=== PATIENT | female | born 1975 | race Caucasian/White ===

== ENCOUNTER → 2016-12-02 | Day surgery (SDC) | payer OTHER ==
[~2016-12-02] MED LIST: LIDO/EPI 1% **for epidural** 30 ML SDV ONE; SODIUM TETRADECYL SULFATE 60 MG/2 ML VIAL IV ONE
--- NOTE | 2016-12-02 18:04 | IR ---
Please see report for contralateral leg performed on the same day.
--- NOTE | 2016-12-02 18:14 | IR ---
Bilateral Sclerotherapy Indication: Areas of residual flow in the great saphenous system. Areas of residual tenseness to th e right lower extremity, and possible new veins to the right lower extremity. The thought was that b ecause of lack of resorption in the great saphenous system, there is still inflow. The patient also states that the areas of lumps in the thighs and calf have not resolved over time. Ultrasound: Ultrasound interrogation of the areas of lumps again confirm that they all represent are as of trapped blood. For whatever reason, this patient has not resorbed any of her clots. Informed Consent: Obtained from the patient. Risks and benefits were discussed. Cross Cutting Measure: Patient's current list of medications including all known prescriptions, over -the-counters, herbals, and vitamin/mineral/dietary supplements are reviewed. Medications' name, dos age, frequency, and route of administration are confirmed. Patient is a non-smoker. Prophylactic Antibiotic: Cefazolin was not ordered and administered for antimicrobial prophylaxis be cause it was not medically necessary. VTE Prophylaxis: There is not an order for VTE prophylaxis to be given within 24 hours of the proced ure end time. VTE prophylaxis was not given because it was not medically necessary. Technique: Patient is placed in supine position. A "timeout" procedure was performed to identify th e correct patient and the correct procedure. 1% Xylocaine was used for local anesthetic. All elemen ts of maximal sterile barrier technique, including cap, mask, sterile gown, sterile gloves, large darion rile sheet, hand hygiene, and 2% chlorhexidine for cutaneous antisepsis, followed. Ultrasound evaluation of potential access site was performed. After successfully identifying a paten t vessel, ultrasound guidance was used to puncture the vessel. A permanent recording was created for the patient's record. When ultrasound is used, sterile gel and probe covers are used. We tried to advance a Lenorah wire after micropuncture access into the great saphenous system at the kne e on the right leg. The Lenorah wire was not able to be advanced because the clot is now already very h ardened. Subsequently, with segmental injections, sclerotherapy was delivered into the already clotted great s aphenous system to close off any potential channel that may still be open. This is done on both legs. Additional sclerotherapy was performed into some of the larger areas of lumps to help with resorption , if there is indeed still a channel open. The patient tolerated the procedure well. Compression stocking was applied afterwards. Impression: Repeat sclerotherapy, multivessel, was performed, free of charge to this patient, to bot h lower extremities. This is done to close off any potential areas of patency that has been left sin ce the previous treatments. Plan: Follow up in one month.
== END | disposition home or self-care (01) ==
LOC: FIMAGING 08:52
PROVIDERS: ATTEND Radiology Diagnostic Radiology
PROC: 06LP3ZZ Occlusion of Right Saphenous Vein, Percutaneous Approach (ICD-10-PCS; principal; 2016-12-02)
PROC: 06LQ3ZZ Occlusion of Left Saphenous Vein, Percutaneous Approach (ICD-10-PCS; principal; 2016-12-02)
DX: I83.893 Varicose veins of bilateral lower extremities with other complications (principal)

== ENCOUNTER → 2017-03-23 | Outpatient (CLI) | payer OTHER | LOC: BMCIMAGING 07:53 | PROVIDERS: ATTEND Family Medicine | DX: Z12.31 Encounter for screening mammogram for malignant neoplasm of breast (principal) | CPT/HCPCS: G0202 ==

== ENCOUNTER 2017-04-04 20:39 | Emergency (ER) | payer OTHER ==
[2017-04-04 20:48] VITALS: BP 124/66; PULSE 68; RESP 16; TEMP 98.1; O2SAT 97
== END 2017-04-04 21:26 | disposition left against medical advice (07) ==
DX: Z53.21 Procedure and treatment not carried out due to patient leaving prior to being seen by health care provider (principal)

== ENCOUNTER → 2017-11-07 | Outpatient (CLI) | payer OTHER | LOC: FIMAGING 08:56 | PROVIDERS: ATTEND Obstetrics & Gynecology | DX: O09.521 Supervision of elderly multigravida, first trimester (principal); O26.01 Excessive weight gain in pregnancy, first trimester; Z3A.13 13 weeks gestation of pregnancy ==

== ENCOUNTER → 2018-01-02 | Outpatient (CLI) | payer OTHER | LOC: FIMAGING 07:57 | PROVIDERS: ATTEND Obstetrics & Gynecology | DX: O09.529 Supervision of elderly multigravida, unspecified trimester (principal); Z3A.00 Weeks of gestation of pregnancy not specified ==

== ENCOUNTER → 2018-03-20 | Outpatient (CLI) | payer OTHER | LOC: FIMAGING 12:55 | PROVIDERS: ATTEND Obstetrics & Gynecology | DX: O09.523 Supervision of elderly multigravida, third trimester (principal); O36.63X0 Maternal care for excessive fetal growth, third trimester, not applicable or unspecified; Z3A.31 31 weeks gestation of pregnancy; Z98.891 History of uterine scar from previous surgery ==

== ENCOUNTER 2018-05-09 05:55 | Inpatient (IN) | payer OTHER ==
--- NOTE | 2018-05-08 15:40 | GHP ---
[f rep st] PREOP HISTORY AND PHYSICAL DATE OF ADMISSION: 05/09/2018 PLANNED PROCEDURE: Repeat low transverse section. INDICATIONS: Patient is a 42-year-old 8, para 2-0-5-2 with an estimated date of confinement of 05/16/2018, dated by an 8 week ultrasound. Her due date based on ultrasound was greater than 5 days in the first trimester , so her due date was changed. She initiated care at [facility] at 9 weeks 4 days. She has a history of a successful vaginal delivery, followed by a primary low transverse section for chorioamnionitis and bradycardia at 7 cm. The patient was hoping to have a vaginal after section; however, has reached 39 weeks' gestation and is electing to proceed with a repeat low transverse section. She declines tubal ligation. She did ask to be examined about possible induction of labor and she was 1 cm dilated, 70% effaced, and -2 station, so she had declined to continue and attempt to have a vaginal after section, especially because her most recent amniotic fluid has been 8 cm, borderline now, and she is requesting to be done with . PAST MEDICAL HISTORY: Significant for a history of a dermoid cyst, borderline melanoma. MEDICATIONS: vitamins, fish oil, DHA. PAST SURGICAL HISTORY: Primary low transverse section, laparoscopic removal of a dermoid cyst, tonsillectomy and adenoidectomy. ALLERGIES: No known drug allergies. SOCIAL HISTORY: The patient is . She works is a wellness coach. She denies tobacco, alcohol, or drug use. FAMILY MEDICAL HISTORY: Significant for multiple family members with cancer, including breast and ovarian cancer and colon cancer. Patient had negative BRCA testing and My Risk testing, but at increase risk for breast cancer. OBSTETRIC/GYNECOLOGIC HISTORY: Menarche age 17. Periods every 28-32 days, lasting 7 days. She is a 8, para 2-0-5-2. In 2006 she had a spontaneous vaginal delivery of a 7 pound 9 ounce female . She pushed for 3 contractions with that baby. In 12/2008, she had a primary low transverse section of a 7 pounds 7 ounce male infant for chorioamnionitis and bradycardia. She has had approximately 5 chemical pregnancies subsequent to the most recent . This current has been uncomplicated with the exception of some borderline low fluid for which she is scheduling her repeat section. Patient does have a history of abnormal Pap smear x1, but a colposcopy was negative. She denies any history of any sexually transmitted diseases. REVIEW OF SYSTEMS: 10-point review of systems is negative. She has positive movement. No loss of fluid. She denies any headache, changes in vision, nausea, vomiting, fevers, or chills. PHYSICAL EXAMINATION: VITAL SIGNS: Stable. GENERAL APPEARANCE: Alert and oriented x3. NECK: Mobile and supple. MUSCULOSKELETAL: Grossly intact. PSYCH: Appropriate affect. NEUROMUSCULAR: Grossly intact. HEART: Rate is regular, regular. LUNGS: Clear to auscultation bilaterally. ABDOMEN: Gravid , nondistended, nontender. EXTREMITIES: Reveal no calf, tenderness, or edema. PELVIC: 1 cm dilated, 70% effaced, and -2 station. heart tracing is category 1. She has a reactive nonstress test. LABORATORY DATA: Blood type A positive. Antibody screen negative. Rubella immune. GBS negative. HBsAg negative. Her 50 g glucose was 177. ASSESSMENT/PLAN: 42-year-old 8, para 2-0-5-2 who will be 39 weeks' gestation for a repeat low transverse section. Risks and benefits have been reviewed with the patient. Patient has been properly consented. /[id number]/MODL MTDD
[2018-05-09] MEDS ORDERED: LR 1,000 ML IV SCH (06:07)
[2018-05-09] MEDS ORDERED: ceFAZolin 2 GM/DEXTROSE 100 ML IV ONE (06:07)
[2018-05-09] MEDS ORDERED: CITRIC ACID/SODIUM CITRATE 30 ML UDCUP PO ONE (06:07)
[2018-05-09] MEDS ORDERED: LR 500 ML IV ONE (06:07)
[2018-05-09 06:21] LABS: PLATELET COUNT 162 10^3/uL (150-400)
--- NOTE | 2018-05-09 07:22 | PREANESOB ---
Obstetric Pre-Anesthesia Info - General Info Proposed Procedure: Repeat C Section. : 8 Para: 2 CT: 05/16/18 Gestational Age: 39 week(s) and 0 day(s) - Info Status: Full Term Monitors: External FHR Baseline (bpm): 130 FHR Pattern: Reassuring - Labor Status Indications for Current Section: Elective/Repeat Labor Epidural: No Anesthesia ROS: Prior epidural x 2, and general anesthesia. Allergies/Adverse Reactions: Allergy/AdvReac Type Severity Reaction Status Date / Time No Known Allergies Allergy Verified 04/04/17 20:48 Home Medications: Medication Instructions Recorded Fish Oil PO DAILY 09/03/16 Flaxseed Oil [Flaxseed] PO DAILY 09/03/16 Multi-Vitamin Daily 1 tab PO DAILY 09/03/16 VITAMIN D PO DAILY 09/03/16 Visit Medications: Generic Name Dose Route Start Last Admin Trade Name Freq PRN Reason Stop Dose Admin Lactated Ringer's 1,000 mls @ 125 mls/hr 05/09/18 06:07 05/09/18 06:35 Lr IV 05/10/18 06:06 1,000 mls CONT BARBI Administration Discontinued Medications Generic Name Dose Route Start Last Admin Trade Name Freq PRN Reason Stop Dose Admin Citric Acid/Sodium Citrate 30 ml 05/09/18 06:07 Bicitra PO 05/09/18 06:08 ONCALL ONE Cefazolin Sodium/Dextrose 100 mls @ 200 mls/hr 05/09/18 06:07 Ancef 2 Gm IV 05/09/18 06:36 ONCALL ONE Protocol Lactated Ringer's 500 mls @ 0 mls/hr 05/09/18 06:07 Lr IV 05/09/18 06:08 ONCE ONE As Directed - Anesthesia History Response to Local Anesthetics: Normal Anesthesia & Operative History: No Prior Problems Family Anesthesia History: Negative - Social History Substance Use/Abuse: Denies - Vital Signs Latest Vital Signs (Nursing): Temp Pulse Resp BP Pulse Ox 36.6 C 76 18 107/58 L 96 05/09/18 06:34 05/09/18 06:34 05/09/18 06:34 05/09/18 06:34 05/09/18 06:34 Blood Pressure: 107/58 Heart Rate: 76 Height/Weight (Nursing): Height 167.64 cm Weight 84.368 kg - Focused Exam Mallampati Score: Class 1 Mouth exam: normal dental/mouth exam Pulmonary: no respiratory distress Cardiovascular: regular rate and rhythym Labs: 05/09/18 06:00 Patient ABO/Rh A POSITIVE 05/09/18 06:00 - Plan Anesthetic Plan: SAB Consent Signed and on Chart: Yes Patient/Guardian Understands and Agrees to Plan: Yes
[2018-05-09] MEDS ORDERED: morphINE PF 5 MG/10 ML INJ ONE (07:43)
[2018-05-09] MEDS ORDERED: fentaNYL 100 MCG/2 ML INJ ONE (07:44)
--- NOTE | 2018-05-09 08:01 | PDHPUP ---
History & Physical Update H&P update statement: This history and physical update is based on an assessment of the patient which was completed after admission or registration (within 24 hours), but prior to the surgery/procedure. No changes since H&P done yesterday by Dr. Pradhan. H&P update: H&P reviewed & patient examined, no change in patient's condition since H&P completed
[2018-05-09] MEDS ORDERED: OXYTOCIN 100 UNITS/10 ML VIAL ONE (08:41)
[2018-05-09] MEDS ORDERED: PHENYLEPHRINE HCL 100 MCG/ML SYR ONE (08:42)
[2018-05-09] MEDS ORDERED: DEXAMETHASONE 4 MG/ML VIAL ONE (08:42)
[2018-05-09] MEDS ORDERED: ONDANSETRON 4 MG/2 ML VIAL ONE (08:42)
[2018-05-09] MEDS ORDERED: EPINEPHrine 1 MG/ML INJ ONE (08:42)
--- NOTE | 2018-05-09 09:27 | POSTOPPROG ---
Post Op Note Date of Operation: 05/09/18 Surgeon: Jia Chaudhary Resident Manager: BILL Cleary and Valentine Cesar CNM Anesthesiologist: Jason Farris MD Anesthesia: Spinal Pre-op Diagnosis: Elective repeat section Post-op Diagnosis: Same Indication: prior , desires repeat Procedure: repeat low transverse section Findings: normal appearing uterus, tube and ovaries, delivery of a male Inf/Abcess present in the surg proc area at time of surgery?: No EBL: 500-1000 Total fluids administered: 3000 Complications: none Specimen(s): none
--- NOTE | 2018-05-09 09:31 | SUROPNOTE ---
[facility] Operative Report - Surgery OPERATIVE NOTE 05/09/2018 PRE-OPERATIVE DIAGNOSIS: Elective repeat section POST-OPERATIVE DIAGNOSIS: Same SURGEON: Jia Chaudhary MD FILLING SEPARATOR: BILL Man, and Valentine Cesar CNM, needed for adequate exposure and retraction ANESTHESIOLOGIST: Jason Farris MD ANESTHESIA: Spinal NURSE PRACTITIONER: JUAN FRANCISCO Bailey EBL: 800 ml IV FLUIDS: 3000 ml URINE OUTPUT: 100 ml FINDINGS: Normal appearing uterus, tubes and ovaries, delivery of male from vertex presentation, Apgars 8 and 9, weight 3792gm INDICATIONS: 42 year old at 39 weeks with a prior vaginal delivery and a prior section, elected to have a repeat section. was complicated by AMA with normal NIPT and MFM ultrasounds. PROCEDURE: Written informed consent was obtained after all questions were answered. She was taken to the operating room where spinal anesthetic was placed. She was then placed in the dorsal supine position. 2 gm of Ancef IV were given. A urinary catheter was placed steriley. Her abdomen was prepared and draped in a sterile fashion. Pinch testing was performed and spinal anesthetic was deemed adequate. An incision was made in the skin and taken down to the fascia which was incised in the midline. This incision was extended laterally. The rectus muscles were dissected away from the overlying fascia in a sharp and blunt fashion. The rectus muscles were in the midline and the peritoneum was entered bluntly. A bladder blade was inserted. A small bladder flap was created, but was limited due to adhesions. The bladder blade was replaced over the incision. The hysterotomy was made and extended laterally with the bandage scissors. Membranes were ruptured with release of clear fluid. The vertex was grasped and elevated out of the pelvis then through the incision with the assistance of fundal pressure. Nose and mouth were bulb suctioned. The body was then delivered with the assistance of fundal pressure. 1 minute of delay was performed prior to clamping and cutting the cord. During this time, the baby was dried and stimulated. The baby was then handed to the awaiting HARMONICA MAKER. The uterus was massaged and the placenta was delivered. The uterus was cleared of all clots and debris x 2. The hysterotomy was repair with 0.0 Monocryl in a running locked fashion. A second imbricating layer was placed, and a few figure of eight sutures were used to obtain hemostasis. The uterus was replaced into the abdomen. The gutters were irrigated and cleared of clots and debris. The fascia was then closed with 2 segments of 0.0 PDS, with knots tied in the middle. The wound was irrigated. Araceli's fascia was closed with 3.0 Monocryl. The skin was closed with 4.0 Monocryl in a running subcuticular fashion. Mastisol was applied, followed by steri strips, and a dressing. Sponge, lap and needle counts were correct times 2. The patient was taken to the recovery room in stable condition. Jia Chaudhary MD
[2018-05-09] MEDS ORDERED: SCOPOLAMINE HYDROBROMIDE 1 MG/3 DAYS PATCH TD ONE ×2 (09:39→10:11)
[2018-05-09] MEDS ORDERED: PHENYLEPHRINE HCL 100 MCG/ML SYR IVP PRN (10:08)
[2018-05-09] MEDS ORDERED: ONDANSETRON 4 MG/2 ML VIAL IVP PRN (10:08)
[2018-05-09] MEDS ORDERED: NALOXONE HCL 0.4 MG/ML INJ IVP PRN (10:08)
--- NOTE | 2018-05-09 10:14 | POSTANESTH ---
Post Anesthetic Evaluation Cardiovascular Status: Normal, Stable, Similar to Pre-Op Cond Respiratory Status: Normal, Stable, Similar to Pre-op Cond. Level of Consciousness/Mental Status: Can Participate in Eval, Alert and Oriented Pain Control: Adequate, Prn Tx Ordered Nausea/Vomiting Control: Adequate, Prn Tx Ordered Complications Possibly Related to Anesthesia: None Noted
[2018-05-09] MEDS: KETOROLAC 30 MG/1 ML SDV IVP PRN ×2 (14:37→20:33)
[2018-05-09] MEDS ORDERED: PATCH REMOVAL 1 EA PATCH TD ONE (19:00)
--- NOTE | 2018-05-10 01:28 | OBDEL ---
Info Type: Repeat Presentation at Delivery: Vertex L&D Analgesia/Anesthesia Type: Spinal GBS+: No Intrapartum Medications: Generic Name Dose Route Start Last Admin Trade Name Freq PRN Reason Stop Dose Admin Lactated Ringer's 1,000 mls @ 125 mls/hr 05/09/18 06:07 05/09/18 06:35 Lr IV 05/10/18 06:06 1,000 mls CONT BARBI Administration Ketorolac Tromethamine 30 mg 05/09/18 14:15 05/09/18 20:33 Toradol IVP 05/10/18 14:14 30 mg Q6HRS PRN Administration Pain, Moderate Discontinued Medications Generic Name Dose Route Start Last Admin Trade Name Freq PRN Reason Stop Dose Admin Citric Acid/Sodium Citrate 30 ml 05/09/18 06:07 05/09/18 07:23 Bicitra PO 05/09/18 06:08 30 ml ONCALL ONE Administration Cefazolin Sodium/Dextrose 100 mls @ 200 mls/hr 05/09/18 06:07 05/09/18 07:50 Ancef 2 Gm IV 05/09/18 06:36 100 mls ONCALL ONE Administration Protocol Scopolamine HBr 1 patch 05/09/18 10:11 05/09/18 18:41 Scopolamine Patch TD 05/09/18 10:12 1 patch Q24H ONE Administration - Care Provider Technology Manager/KILN REMOVER: Johanne Kelly Vaginal Delivery - Labor and Delivery Rupture of Membranes Date: 05/09/18 Rupture of Membranes Time: 08:36 Placenta Delivery Date: 05/09/18 Placenta Delivery Time: 08:39 Operative Report - Delivery Pre-op Diagnoses: Elective repeat section Post-op Diagnoses: Same History of Prior Section: Yes Number of Prior Sections: 1 Nulliparous Prior to Delivery: No Indications for Prior Section: Elective/Repeat Indications for Current Section: Elective/Repeat Procedure: Scheduled Surgeon: Jia Chaudhary Amplifier Mechanic: Lee Ann Cesar) Anesthesiologist: Jason Farris Complications: None Findings: Normal appearing uterus, tubes and ovaries. IV Fluid (ml): 3,000 EBL: [address]: 05/16/18 Gestational Age: 39 week(s) and 1 day(s) Hernandez Delivery Date: 05/09/18 Delivery Time: 08:37 Sex of Infant: Male Weight (gm): 3792 kg Score (1 Min): 8 Score (5 Min): 9 ICD10 Worksheet Patient Problems: Problems Problem Status Onset Delivery by elective section Acute Delivery by elective section Acute - ICD10 Problem Qualifiers (1) Delivery by elective section (2) Delivery by elective section
[2018-05-10] MEDS: KETOROLAC 30 MG/1 ML SDV IVP PRN ×2 (02:21→09:14)
[2018-05-10] MEDS ORDERED: MAGNESIUM HYDROXIDE 30 ML UDCUP PO PRN (11:49)
[2018-05-10] MEDS ORDERED: POLYETHYLENE GLYCOL 3350 17 GM PKT PO PRN (11:49)
[2018-05-10] MEDS ORDERED: BISACODYL 10 MG SUPP PR PRN (11:49)
[2018-05-10] MEDS ORDERED: LACTULOSE 20 GM/30 ML UDCUP PO PRN (11:49)
--- NOTE | 2018-05-10 11:49 | OBPP ---
Progress Note Assessment/Plan: Assessment: pod#1 s/p RLTCS uncomplicated post operative course breast feeding anemia Plan: routine post operative and post course increase activity iron 05/10/18 11:46 05/10/18 11:47 Subjective/ Course: 05/10/18 11:47 patient is doing well. pain is well controlled. breast feeding is going well. denies headache and changes in vision. passing gas. voiding without difficulty. normal lochia. ambulating in room. no concerns. Objective: 05/10/18 10:10 Patient ABO/Rh A POSITIVE 05/09/18 06:00 Temp Pulse Resp BP Pulse Ox 36.2 C 70 20 96/59 L 95 05/10/18 10:59 05/10/18 10:59 05/10/18 10:59 05/10/18 10:59 05/10/18 10:59 Physical Exam - Physical Exam Neck: non-tender, full range of motion, supple Respiratory: chest non-tender, lungs clear, normal breath sounds Cardiac/Chest: normal peripheral pulses, regular rate, rhythm Abdomen: normal bowel sounds, non-tender Extremities: normal range of motion, non-tender, normal inspection, normal capillary refill Skin: normal color, warm/dry, other (incision covered) Neuro/Psych: no motor/sensory deficits, alert, normal mood/affect, oriented x 3
[2018-05-10] MEDS: IRON POLYSAC/IRON HEME 28 MG TAB PO SCH ×2 (12:35→21:12)
[2018-05-10] MEDS ORDERED: HYDROCODONE/APAP 5/325 TAB PO PRN (16:04)
[2018-05-10] MEDS: IBUPROFEN 600 MG TAB PO PRN ×2 (16:15→21:12)
[2018-05-10] MEDS ORDERED: RANITIDINE SYRUP 15 MG/1 ML UDSYR PO SCH (18:30)
[2018-05-10] MEDS: SENNOSIDES/DOCUSATE SODIUM TAB PO SCH (21:12)
[2018-05-10] MEDS: RANITIDINE HCL 150 MG/10 ML UDCUP PO SCH (21:12)
[2018-05-11] MEDS: IBUPROFEN 600 MG TAB PO PRN ×4 (03:42→22:02)
[2018-05-11] MEDS: ACETAMINOPHEN 325 MG TAB PO PRN (06:18)
[2018-05-11] MEDS: IRON POLYSAC/IRON HEME 28 MG TAB PO SCH ×2 (09:45→22:03)
[2018-05-11] MEDS: SENNOSIDES/DOCUSATE SODIUM TAB PO SCH ×2 (09:45→22:03)
[2018-05-11] MEDS: RANITIDINE HCL 150 MG/10 ML UDCUP PO SCH (09:46)
--- NOTE | 2018-05-11 09:51 | OBPP ---
Progress Note Assessment/Plan: Assessment: [id number] s/p repeat c/s POD#2 AMA Plan: routine PO care ambulate support PRN anticipate d/c home tomorrow 05/11/18 16:23 Subjective/ Course: 05/10/18 11:47 patient is doing well. pain is well controlled. breast feeding is going well. denies headache and changes in vision. passing gas. voiding without difficulty. normal lochia. ambulating in room. no concerns. 05/11/18 16:21 Pt doing well. She is OOB, ambulating without difficulty. She denies any pain or heavy bleeding. She is . Objective: 05/10/18 10:10 Patient ABO/Rh A POSITIVE 05/09/18 06:00 Temp Pulse Resp BP Pulse Ox 36.2 C 73 13 98/59 L 98 05/10/18 10:59 05/10/18 19:43 05/10/18 19:43 05/10/18 19:43 05/10/18 19:43 Uterine Position/Fundal Height: Umbilicus -1, Midline Uterine Tone: Firm Physical Exam - Physical Exam General Appearance: WD/WN, alert, no apparent distress Neck: supple Respiratory: normal breath sounds Cardiac/Chest: regular rate, rhythm Abdomen: non-tender, soft, incision (C/D/I) Skin: normal color, warm/dry Neuro/Psych: alert, normal mood/affect, oriented x 3
[2018-05-12] MEDS: ACETAMINOPHEN 325 MG TAB PO PRN (02:21)
[2018-05-12] MEDS: IBUPROFEN 600 MG TAB PO PRN ×2 (04:29→10:46)
[2018-05-12 09:26] VITALS: BP 111/50
[2018-05-12] MEDS: SENNOSIDES/DOCUSATE SODIUM TAB PO SCH (09:26)
[2018-05-12] MEDS: IRON POLYSAC/IRON HEME 28 MG TAB PO SCH (09:26)
--- NOTE | 2018-05-12 11:39 | OBGCSDC ---
General Delivery Information - General Info : 8 Para: 3 Abortions: 5 Type: Repeat L&D Analgesia/Anesthesia Type: Spinal Admission Date: 05/09/18 Labs: Patient ABO/Rh A POSITIVE 05/09/18 06:00 Hct 31.9 % (38.0-47.0) L 05/10/18 10:10 - Hospital Course : 05/10/18 11:47 patient is doing well. pain is well controlled. breast feeding is going well. denies headache and changes in vision. passing gas. voiding without difficulty. normal lochia. ambulating in room. no concerns. 05/11/18 16:21 Pt doing well. She is OOB, ambulating without difficulty. She denies any pain or heavy bleeding. She is . 05/12/18 11:37 Pt seen and examined. Doing well with no complaints. Pain is well controlled with just Motrin. She is OOB, [place] regular diet, voiding and passing flatus. BM x 2 this am. Mod lochia. BF without difficulty. - Delivery Providers Surgeon: Jia Chaudhary Tumbling And Rolling Supervisor: Lee Ann Campos (Valentine Cesar) Anesthesiologist: Jason Farris - Delivery Number of Prior Sections: 1 Indications for Current Section: Elective/Repeat Surgical Procedures: Scheduled Intra-op Complications: None EBL: [address]: 05/16/18 Gestational Age: 39 week(s) and 3 day(s) Hernandez Delivery Date: 05/09/18 Delivery Time: 08:37 Sex of Infant: Male Weight (gm): 3792 kg Score (1 Min): 8 Score (5 Min): 9 Discharge Information - Discharge Information Condition: Good Instruction/Follow Up: Two Weeks, Four Weeks, Six Weeks
--- NOTE | 2018-05-12 11:39 | OBPP ---
Progress Note Assessment/Plan: Assessment: 1) s/p RCS POD # 3 - pt is stable 2) Anemia - pt is asymptomatic Plan: Plan for d/c home today Instructions reviewed with pt Rx given for Motrin Cont PNV, iron and colace Pelvic rest RTC in 2,4 and 6 weeks for pp visit 05/12/18 11:36 Subjective/ Course: 05/10/18 11:47 patient is doing well. pain is well controlled. breast feeding is going well. denies headache and changes in vision. passing gas. voiding without difficulty. normal lochia. ambulating in room. no concerns. 05/11/18 16:21 Pt doing well. She is OOB, ambulating without difficulty. She denies any pain or heavy bleeding. She is . 05/12/18 11:37 Pt seen and examined. Doing well with no complaints. Pain is well controlled with just Motrin. She is OOB, [place] regular diet, voiding and passing flatus. BM x 2 this am. Mod lochia. BF without difficulty. Objective: 05/10/18 10:10 Patient ABO/Rh A POSITIVE 05/09/18 06:00 Temp Pulse Resp BP Pulse Ox 36.1 C 65 16 111/50 L 96 05/12/18 08:00 05/12/18 08:00 05/11/18 20:00 05/12/18 08:00 05/12/18 08:00 Uterine Position/Fundal Height: Umbilicus -2 Uterine Tone: Firm Physical Exam - Physical Exam General Appearance: alert, no apparent distress, mild distress Respiratory: lungs clear, normal breath sounds Cardiac/Chest: regular rate, rhythm Abdomen: normal bowel sounds, non-tender, soft, flatus (+), incision (C/D/I; well approximated with steri strips in place) Extremities: non-tender, normal inspection Skin: normal color, warm/dry Neuro/Psych: alert, normal mood/affect, oriented x 3
== END 2018-05-12 12:45 | disposition home or self-care (01) | DRG 766 ==
LOC: FLD 05:55 → FOB 11:34
PROVIDERS: ADMIT Obstetrics & Gynecology; ATTEND Obstetrics & Gynecology
PROC: 10D00Z1 Extraction of Products of Conception, Low, Open Approach (ICD-10-PCS; principal; 2018-05-09)
DX: O34.219 Maternal care for unspecified type scar from previous cesarean delivery (principal); Z37.0 Single live birth; Z3A.39 39 weeks gestation of pregnancy; O99.03 Anemia complicating the puerperium; D64.9 Anemia, unspecified
CPT/HCPCS: J0171; J0690; J1100; J1885; J2274; J2370; J2405; J2590; J3010